=== PATIENT | female | born 1955 | race Caucasian/White ===

== ENCOUNTER → 2017-05-14 | Outpatient (CLI) | payer MEDICAID ==
[~2017-05-14] MED LIST: NONE PER PT; VITAMINS
== END ==
LOC: ROC 10:01
PROVIDERS: ATTEND Radiology Radiation Oncology
DX: C50.012 Malignant neoplasm of nipple and areola, left female breast (principal)
CPT/HCPCS: 99212; G0463

== ENCOUNTER → 2017-11-27 | Outpatient (CLI) | payer MEDICAID | END | disposition home or self-care (01) | LOC: ROC 09:01 | PROVIDERS: ATTEND Radiology Radiation Oncology | DX: D05.12 Intraductal carcinoma in situ of left breast (principal) | CPT/HCPCS: 99213; G0463 ==

== ENCOUNTER 2018-06-03 09:02 | Outpatient (CLI) | payer MEDICARE | END 2018-06-03 23:59 | disposition home or self-care (01) | LOC: ROC 09:02 | PROVIDERS: ATTEND Radiology Radiation Oncology | DX: Z08 Encounter for follow-up examination after completed treatment for malignant neoplasm (principal); D05.12 Intraductal carcinoma in situ of left breast | CPT/HCPCS: 99212; G0463 ==

== ENCOUNTER → 2020-05-04 | Outpatient (CLI) | payer MEDICARE | END | disposition home or self-care (01) | LOC: ROC 10:14 | PROVIDERS: ATTEND Radiology Radiation Oncology | DX: Z08 Encounter for follow-up examination after completed treatment for malignant neoplasm (principal); D05.12 Intraductal carcinoma in situ of left breast; E78.5 Hyperlipidemia, unspecified; E03.9 Hypothyroidism, unspecified | CPT/HCPCS: 99212; G0463 ==

== ENCOUNTER 2020-10-03 23:06 | Emergency (ER) | payer MEDICARE ==
[~2020-10-03] VITALS: Ht 154.9 cm; Wt 64.0 kg
[2020-10-04] MEDS ORDERED: LIDOCAINE-MPF 1%, 5ML ONE (00:11)
--- NOTE | 2020-10-04 00:20 | NUR ---
PT HAS SEMAJ WRAP IN PLACE. ~1CM LAC TO R INNER WRIST. PT UNSURE IF TD UPT. RBS 110. AT BS. WILL CTM.
--- NOTE | 2020-10-04 00:29 | NUR ---
SITE CLEANED. READY FOR SUTURES.
[2020-10-04] MEDS ORDERED: DIPH,PERTUSS(ACELL),TET VAC/PF 0.5 ML IM-VACC ONE ×2 (00:30→00:34)
[2020-10-04] MEDS ORDERED: BACITRACIN ZINC OINT 500U/GM, 0.9 GM ONE (00:44)
--- NOTE | 2020-10-04 00:56 | NUR ---
WOUND WRAPPED. SITE CDI.
[2020-10-04 01:01] VITALS: BP 136/85
== END 2020-10-04 01:03 | disposition home or self-care (01) ==
LOC: ED 23:35
DX: S61.511A Laceration without foreign body of right wrist, initial encounter (principal); Z86.39 Personal history of other endocrine, nutritional and metabolic disease; Z87.891 Personal history of nicotine dependence; W26.9XXA Contact with unspecified sharp object(s), initial encounter; Y93.89 Activity, other specified; Y92.009 Unspecified place in unspecified non-institutional (private) residence as the place of occurrence of the external cause; Y99.8 Other external cause status
CPT/HCPCS: 12041; 82962; 90471; 90715; 99284